=== PATIENT | female | born 1935 | race Hispanic/Latino ===

== ENCOUNTER 2017-02-06 13:08 | Outpatient (CLI) | payer MEDICARE ==
[2017-02-06 13:24] LABS: Hematocrit 42.4 % (30.3-42.9); Hemoglobin 14.4 gm/dl (10.1-14.3); Mean Corpuscular HGB Conc 34 % (30-34); Mean Corpuscular Hemoglobin 30 pg (28-32); Mean Corpuscular Volume 89 fl (79-97); Platelet Count 156 K/mm3 (140-440); Red Blood Count 4.77 M/mm3 (3.65-5.03); White Blood Count 6.6 K/mm3 (4.5-11.0)
[2017-02-06 13:52] LABS: Albumin 4.3 g/dL (3.9-5); Albumin/Globulin Ratio 1.5 %; Bilirubin,Total 0.6 mg/dL (0.1-1.2); Calcium 9.7 mg/dL (8.4-10.2); Chloride 101.8 mmol/L (98-107); Potassium 4.5 mmol/L (3.6-5.0); Total Protein 7.1 g/dL (6.3-8.2)
== END 2017-02-06 13:09 | disposition home or self-care (01) ==
LOC: LAB 13:08
PROVIDERS: ATTEND Specialist
DX: R41.1 Anterograde amnesia (principal)
CPT/HCPCS: 36415; 80053; 82607; 82747; 84439; 84443; 85027

== ENCOUNTER 2017-02-14 10:03 | Outpatient (CLI) | payer MEDICARE | END 2017-02-14 10:04 | disposition home or self-care (01) | LOC: MRI 10:03 | PROVIDERS: ATTEND Specialist | DX: R41.1 Anterograde amnesia (principal) | CPT/HCPCS: 70551 ==